=== PATIENT | male | born 1970 | race Caucasian/White ===

== ENCOUNTER 2016-08-03 11:20 | Day surgery (SDC) | payer BC ==
[2016-07-27 16:21] LABS: BASOPHILS 0.4 %; BASOPHILS ABSOLUTE 0.03 10/3/uL (0.0-0.16); EOSINOPHILS 4.4 %; EOSINOPHILS ABSOLUTE 0.34 10/3/uL (0.0-0.53); HEMATOCRIT 44.7 % (40.0-51.0); HEMOGLOBIN 15.7 g/dL (13.6-17.8); IMMATURE GRANULOCYTES 0.4 %; IMMATURE GRANULOCYTES ABSOLUTE 0.03 10/3/uL (0.0-0.11); LYMPHOCYTES 34.5 %; LYMPHOCYTES ABSOLUTE 2.66 10/3/uL (0.67-4.30); MEAN CORPUS HGB CONC 35.1 g/dL (32.0-36.0); MEAN CORPUSCULAR HEMOGLOB 29.8 pg (26.0-34.0); MEAN PLATELET VOLUME 10.6 fL (9.2-13.0); MONOCYTES 9.5 %; MONOCYTES ABSOLUTE 0.73 10/3/uL (0.21-1.20); NEUTROPHILS 50.8 %; NEUTROPHILS ABSOLUTE 3.92 10/3/uL (2.02-8.40); RBC DISTRIBUTION WIDTH 12.9 % (12.0-16.0); RED CELL COUNT 5.26 10/6/uL (4.7-6.1); WHITE BLOOD CELLS 7.7 10/3/uL (4.5-10.5)
[2016-07-27 16:23] LABS: MANUAL DIFF NO %; PLATELET COUNT 269 10/3/uL (150-400)
[2016-07-27 16:33] LABS: A/G RATIO 1.1 (0.7-1.9); ALBUMIN 3.8 G/DL (3.5-5.0); ALKALINE PHOSPHATASE 70 U/L (45-117); CHLORIDE, SERUM 108 MMOL/L (96-112); CO2 (CARBON DIOXIDE) 27 MMOL/L (24-34); GFR AFRICAN AMERICAN 85 ML/MIN (>=60); GFR NON AFRICAN AMERICAN 73 ML/MIN (>=60); GLOBULIN 3.6 G/DL (2.5-4.1); GLUCOSE, SERUM 113 MG/DL (60-99); POTASSIUM, SERUM 3.7 MMOL/L (3.5-5.3); SGOT(AST) 16 U/L (5-40); SGPT(ALT) 34 U/L (5-65); SODIUM, SERUM 145 MMOL/L (135-148); TOTAL BILIRUBIN 0.4 MG/DL (0-1.2); TOTAL PROTEIN 7.4 G/DL (6.0-8.5)
[2016-07-27 16:34] LABS: BUN (BLOOD UREA NITROGEN) 12 MG/DL (6-23)
--- NOTE | ~2016-08-03 | OP ---
Record Of Operation [facility] [address] [place]. [address] NAME: GORDON SAAVEDRA : 72 STATUS : [facility]#: [id number] AGE: 45 ADM/REG DATE : 08/03/16 MR#: [id number] REPORT SERV DATE: 08/03/16 DICTATED BY: JOSE CEDILLO DATE: 08/03/16 REPORT STATUS : Draft TRANSCRIBED BY: MODL DATE: 08/03/16 DATE OF PROCEDURE: 08/03/2016 PREOPERATIVE DIAGNOSIS: Cholelithiasis, cholecystitis. POSTOPERATIVE DIAGNOSIS: Cholelithiasis, cholecystitis. OPERATION: Laparoscopic cholecystectomy. ATTENDING SURGEON: Jose Cedillo M.D. RESIDENT: Shakila Mata MD ANESTHESIA: General endotracheal. SPECIMENS: Gallbladder. COMPLICATIONS: None. ESTIMATED BLOOD LOSS: Less than 5 mL. INDICATION FOR PROCEDURE: The patient is a 45-year-old male with cholelithiasis and cholecystitis. Risks, benefits, alternatives of laparoscopic cholecystectomy with possible cholangiogram, possible open cholecystectomy were discussed with the patient, including but not limited to, risk of bleeding, infection, damage to surrounding structures. The patient expressed understanding and wished to proceed. DESCRIPTION OF PROCEDURE: After consent was obtained, the patient was brought to the operating room and placed on operating table in supine position. General endotracheal anesthesia was induced. The abdomen was prepped and draped in the usual sterile fashion. A time-out was performed. An incision was made just inferior to the umbilicus. Subcutaneous tissue was bluntly dissected down to the fascia, which was elevated and incised with the peritoneum. Entry into the peritoneum was confirmed visually. A 12 mm trocar was then inserted and the abdomen was insufflated with CO2, which the patient tolerated well. A laparoscope was inserted and the abdomen inspected. No injuries from initial trocar placement were noted. Additional trocars were then inserted in the following locations, a 12 mm trocar in the epigastrium and two 5 mm trocars along the right costal margin. Table was placed in reverse Trendelenburg with right side up. The abdomen was inspected and no abnormalities were noted. The dome of the gallbladder was grasped and retracted over the dome of the liver. The infundibulum was grasped with another grasper and retracted toward the right lower quadrant exposing Calot's triangle. The gallbladder was noted to be somewhat inflamed and edematous. The peritoneum overlying the gallbladder infundibulum was incised and the cystic duct and artery were identified and circumferentially dissected. The junction of the cystic duct with the gallbladder was identified after which the cystic duct and artery were then doubly clipped proximally, distally, and divided close to the gallbladder. The gallbladder was then dissected from its peritoneal attachments in the Record Of Operation [address] [address] NAME: GORDON SAAVEDRA : 72 STATUS : [facility] PAT#: [id number] AGE: 45 ADM/REG DATE : 08/03/16 MR#: [id number] REPORT SERV DATE: 08/03/16 DICTATED BY: JOSE CEDILLO DATE: 08/03/16 REPORT STATUS : Draft TRANSCRIBED BY: MARILEE DATE: 08/03/16 gallbladder fossa by electrocautery in a retrograde fashion. Hemostasis was obtained in the liver bed using electrocautery. Using electrocautery as well as with placement of SNoW, the gallbladder and contained stones were removed using an endoscopic retrieval bag placed through the umbilical trocar. The gallbladder was passed off the table as a specimen. Secondary trocars were removed under direct vision. No bleeding was noted. Laparoscope was withdrawn. The umbilical trocar removed. The abdomen was allowed to collapse. The fascia of the umbilical trocar site was closed with Vicryl suture in a [id number] fashion. Skin was closed with subcuticular sutures of Monocryl and Dermabond. The patient tolerated the procedure well, was extubated in the OR, and taken to the PACU in stable condition. DICTATED BY: MD TONY Soto/MARILEE Jose Cedillo M.D. / [id number] CC: Owen Horta Katrina V.
[~2016-08-03 11:20] MED LIST: MOTRIN IB200 MG PO
== END 2016-08-03 17:00 | disposition home or self-care (01) ==
LOC: SDC 11:20
PROVIDERS: Specialist
PROC: 0FT44ZZ Resection of Gallbladder, Percutaneous Endoscopic Approach (ICD-10-PCS; principal; 2016-08-03 12:45)
DX: K81.1 Chronic cholecystitis (principal); G47.33 Obstructive sleep apnea (adult) (pediatric); E66.9 Obesity, unspecified; F17.290 Nicotine dependence, other tobacco product, uncomplicated
CPT/HCPCS: 80053; 85025; 88304; A9270-GY; J0690; J1885; J2250; J2405; J2710; J3010